=== PATIENT | male | born 1955 | race Caucasian/White ===

== ENCOUNTER 2016-11-21 13:38 | Inpatient (IN) | payer OTHER ==
[~2016-11-21] VITALS: Ht 188 cm; Wt 99.5 kg
[2016-11-21 14:31] LABS: URINE APPEARANCE CLEAR (CLEAR); URINE BILIRUBIN NEG (NEG); URINE COLOR DK YELLOW; URINE NITRITE NEG (NEG); URINE SPECIFIC GRAVITY 1.034 (1.000-1.030); UROBILINOGEN NEG (NEG)
[2016-11-21 14:32] LABS: MANUAL MICROSCOPIC REQUIRED? NO; REVIEW REQ? NO
[2016-11-21] MEDS ORDERED: DIVA500T59 PO ×2 (14:42)
[2016-11-21] MEDS ORDERED: HYDR-3126 PO (14:42)
[2016-11-21] MEDS ORDERED: ABL/5 PO ×2 (14:42→19:17)
[2016-11-21] MEDS ORDERED: ESCI10TA17 PO (14:42)
[2016-11-21 14:49] LABS: BASO % 0.5 %; BASO ABS # 0.04 K/uL (0-0.2); COMPLETE YES; EOS % 0.9 %; HEMATOCRIT 45.4 % (42-52); IG% 0.3 %; MEAN CELL VOLUME 84.9 fL (80-100); MEAN CORPUSCULAR HEMOGLOBIN 30.3 pg (25-34); MEAN CORPUSCULAR HGB CONC 35.7 g/dl (32-36); MONO % 10.5 %; NEUT % 55.8 %; PLATELET COUNT 189 K/uL (130-400); RED BLOOD COUNT 5.35 M/uL (4.7-6.1)
[2016-11-21 14:53] LABS: BENZODIAZEPINE, URINE NEG (NEG); COCAINE,URINE NEG (NEG); PHENCYCLIDINE, URINE NEG (NEG)
[2016-11-21 15:08] LABS: BUN/CREATININE RATIO 15.3 (10-20); CALCIUM 8.9 mg/dl (8.5-10.1); CREATININE 1.2 mg/dl (0.60-1.40); POTASSIUM 4.1 mmol/L (3.5-5.1)
[2016-11-21 15:18] LABS: THYROID STIMULATING HORMONE 0.724 uIu/ml (0.300-4.500)
[2016-11-21] MEDS ORDERED: hydrOXYzine HCL 25 MG TAB PO PRN (16:00)
[2016-11-21] MEDS ORDERED: ALUMINUM/MAGNESIUM SUSP 30 ML UDC PO PRN (16:00)
[2016-11-21] MEDS ORDERED: BISMUTH SUBSALICYLATE PER ML OMNICELL CHARGE PO PRN (16:00)
[2016-11-21] MEDS ORDERED: MAGNESIUM HYDROXIDE SUSP 30 ML UDC PO PRN (16:00)
[2016-11-21] MEDS ORDERED: SODIUM CHLORIDE 0.65% NA SOLN 45 ML (OCEAN) PRN (16:00)
[2016-11-21] MEDS ORDERED: ACETAMINOPHEN 325 MG TAB PO PRN (16:00)
[2016-11-21] MEDS ORDERED: LORAZEPAM 0.5 MG TAB SL STA (16:03)
[2016-11-21] MEDS ORDERED: NURSING VERBAL MED ORDER SCH (18:00)
[2016-11-21 18:33] VITALS: O2SAT 97
--- NOTE | 2016-11-21 18:37 | EMERGENCY ROOM VISIT NOTE ---
History Report prepared by Sai: Yani Ba Under the Supervision of: Yumiko WhiteO. First contact with patient: 13:53 Chief Complaint: MENTAL HEALTH EVALUATION Stated Complaint: DEPRESSION, LACK OF INTEREST IN ANYTHING History of Present Illness The patient is a 61 year old male who presents to the Emergency Room for a mental health evaluation. The patient states that he has been depressed in the past. For the past 3 weeks it has been much worse. Per , this is the most depressed that she has ever seen him. For the past week the patient has been in bed. He has not been eating, drinking, showering, or bathing for the past week. He reports a 9 lb weight loss over the past two weeks. The patient denies anything triggering his worsening depression. He denies SI or HI. He states that he has started feeling like he would "be better off not being here anymore. " The patient has a history of bipolar disorder. He has been admitted for this 4 times in the past. He has been taking his medications as prescribed. Two weeks ago he was changed from Wellbutrin to Lexapro. Pt denies headache, change in vision, fevers, chest pain, shortness of breath, nausea, vomiting, diarrhea, pain with urination, and melena. Source of History: patient, spouse/significant other Onset: 3 weeks ago Position: other (mental health) Quality: other (depression) Timing: worsening Associated Symptoms: No fevers, No headache, No chest pain, No SOB, No nausea, No vomiting, No melena, No diarrhea, No urinary symptoms Note: Pt denies SI and HI. Review of Systems See HPI for pertinent positives & negatives. A total of 10 systems reviewed and were otherwise negative. Past Medical & Surgical Medical Problems: (1) Major depressive disorder, recurrent episode with anxious distress Family History No pertinent history stated. Social History Smoking Status: Never Smoker Marital Status: Housing Status: lives with significant other Occupation Status: retired Current/Historical Medications Scheduled Aripiprazole (Abilify), 5 MG PO DAILY Divalproex Sodium (Depakote), 1,000 MG PO QPM Divalproex Sodium (Depakote), 500 MG PO QAM Escitalopram (Lexapro), 10 MG PO QAM Scheduled PRN Hydroxyzine Hcl (Atarax), 50 MG PO TID PRN for Anxiety Allergies Coded Allergies: No Known Allergies (Unverified , 11/21/16) Physical Exam Vital Signs Date Time Temp Pulse Resp B/P (MAP) Pulse Ox O2 Delivery O2 Flow Rate FiO2 11/21/16 18:33 68 18 139/92 97 11/21/16 16:34 144/95 11/21/16 16:02 69 18 151/104 97 Room Air 11/21/16 13:42 36.7 86 18 141/97 95 Room Air Physical Exam GENERAL: alert, sitting up in bed, disheveled, depressed, well appearing, well nourished, no distress, non-toxic EYE EXAM: normal conjunctiva OROPHARYNX: no exudate, no erythema, lips, buccal mucosa, and tongue normal and mucous membranes are moist NECK: supple, no nuchal rigidity, no adenopathy, non-tender LUNGS: Clear to auscultation. Normal chest wall mechanics HEART: no murmurs, S1 normal and S2 normal ABDOMEN: abdomen soft, non-tender, normo-active bowel sounds, no masses, no rebound or guarding. BACK: Back is symmetrical on inspection and there is no deformity, no midline tenderness, no CVA tenderness. SKIN: no rashes and no bruising UPPER EXTREMITIES: upper extremities are grossly normal. LOWER EXTREMITIES: No pitting edema. NEURO EXAM: Normal sensorium, cranial nerves II-XII grossly intact, normal speech, no gross weakness of arms, no gross weakness of legs. PSYCH: Denies SI and HI. He admits to having no reason to live anymore, not showering, bathing, eating, drinking, or leaving the bed x1 week. Flat affect. Medical Decision & Procedures Laboratory Results 11/21/16 14:30 Red Blood Count 5.35, Mean Corpuscular Volume 84.9, Mean Corpuscular Hemoglobin 30.3, Mean Corpuscular Hemoglobin Concent 35.7, Mean Platelet Volume 11.0, Neutrophils (%) (Auto) 55.8, Lymphocytes (%) (Auto) 32.0, Monocytes (%) (Auto) 10.5, Eosinophils (%) (Auto) 0.9, Basophils (%) (Auto) 0.5, Neutrophils # (Auto ) 4.18, Lymphocytes # (Auto) 2.40, Monocytes # (Auto) 0.79, Eosinophils # (Auto ) 0.07, Basophils # (Auto) 0.04 11/21/16 14:30 Test 11/21/16 14:10 11/21/16 14:30 11/21/16 16:03 Urine Color DK YELLOW Urine Appearance CLEAR (CLEAR) Urine pH 6.0 (4.5-7.5) Urine Specific [place] 1.034 (1.000-1.030) Urine Protein TRACE (NEG) Urine Glucose (UA) NEG (NEG) Urine Ketones 1+ (NEG) Urine Occult Blood NEG (NEG) Urine Nitrite NEG (NEG) Urine Bilirubin NEG (NEG) Urine Urobilinogen NEG (NEG) Urine Leukocyte Esterase NEG (NEG) Urine WBC (Auto) 1-5 /hpf (0-5) Urine RBC (Auto) 5-10 /hpf (0-4) Urine Hyaline Casts (Auto) 1-5 /lpf (0-5) Urine Epithelial Cells (Auto) 5-10 /lpf (0-5) Urine Bacteria (Auto) NEG (NEG) Urine Opiates Screen NEG (NEG) Urine Methadone, Qualitative NEG (NEG) Urine Barbiturates NEG (NEG) Urine Phencyclidine (PCP) Level NEG (NEG) Ur Amphetamine/Methamphetamine NEG (NEG) MDMA (Ecstasy) Screen POS (NEG) Urine Benzodiazepines Screen NEG (NEG) Urine Cocaine Metabolite NEG (NEG) Urine Marijuana (THC) NEG (NEG) White Blood Count 7.50 K/uL (4.8-10.8) Red Blood Count 5.35 M/uL (4.7-6.1) Hemoglobin 16.2 g/dL (14.0-18.0) Hematocrit 45.4 % (42-52) Mean Corpuscular Volume 84.9 fL (80-100) Mean Corpuscular Hemoglobin 30.3 pg (25-34) Mean Corpuscular Hemoglobin Concent 35.7 g/dl (32-36) Platelet Count 189 K/uL (130-400) Mean Platelet Volume 11.0 fL (7.4-10.4) Neutrophils (%) (Auto) 55.8 % Lymphocytes (%) (Auto) 32.0 % Monocytes (%) (Auto) 10.5 % Eosinophils (%) (Auto) 0.9 % Basophils (%) (Auto) 0.5 % Neutrophils # (Auto) 4.18 K/uL (1.4-6.5) Lymphocytes # (Auto) 2.40 K/uL (1.2-3.4) Monocytes # (Auto) 0.79 K/uL (0.11-0.59) Eosinophils # (Auto) 0.07 K/uL (0-0.5) Basophils # (Auto) 0.04 K/uL (0-0.2) RDW Standard Deviation 40.9 fL (36.4-46.3) RDW Coefficient of Variation 13.3 % (11.5-14.5) Immature Granulocyte % (Auto) 0.3 % Immature Granulocyte # (Auto) 0.02 K/uL (0.00-0.02) Nucleated RBC Absolute Count (auto) 0.07 K/uL (0-0) Nucleated Red Blood Cells % 0.9 % Anion Gap 7.0 mmol/L (3-11) Est Creatinine Clear Calc Drug Dose 83.7 ml/min Estimated GFR () 76.3 Estimated GFR (Non- 65.8 BUN/Creatinine Ratio 15.3 (10-20) Calcium Level 8.9 mg/dl (8.5-10.1) Total Bilirubin 0.7 mg/dl (0.2-1) Direct Bilirubin 0.2 mg/dl (0-0.2) Aspartate Amino Transf (AST/SGOT) 33 U/L (15-37) Alanine Aminotransferase (ALT/SGPT) 92 U/L (12-78) Alkaline Phosphatase 54 U/L (45-117) Total Protein 6.9 gm/dl (6.4-8.2) Albumin 3.4 gm/dl (3.4-5.0) Thyroid Stimulating Hormone (TSH) 0.724 uIu/ml (0.300-4.500) Ethyl Alcohol mg/dL < 3.0 mg/dl (0-3) Laboratory results per my review. Medications Administered Medications (Trade) Dose Ordered Sig/Aryan Route Start Time Stop Time Status Last Admin Dose Admin Lorazepam (Ativan Tab) 0.5 mg NOW STAT SL 11/21/16 16:03 11/21/16 16:04 DC 11/21/16 16:10 0.5 MG ED Course ED COURSE: Vital signs were reviewed and showed hypertensive. The patients medical record was reviewed The above diagnostic studies were performed and reviewed. ED treatments and interventions as stated above. 1353: The patient was evaluated in room A5. A complete history and physical examination was performed. 1532: The psychiatric liaison evaluated the patient and he has been accepted to [facility] for further management. 1541: Upon reevaluation, the patient is doing well. I discussed my findings with the patient and he understands and agrees with the treatment plan. Based on the patients age, coexisting illnesses, exam and lab findings the decision to treat as an inpatient was made. The patient remained stable while under my care. The patient will be evaluated for further management. Medical Decision Differential diagnosis: Etiologies such as mood disorder, infection, hypoglycemia, electrolyte abnormalities, cardiac sources, intracerebral event, toxicologic, neurologic, as well as others were entertained. Patient is a 61-year-old male who presents the ER for depression. He has not been eating and drinking or leaning benefit past week. He has not been showering or shaving. He has no physical complaints. CBC along with BMP, LFTs and TSH are unremarkable. UA is unremarkable. Tox is positive for MDMA. Patient was updated regards to his findings. He is evaluated by 3 S. and admitted for depression/mood disorder. Medication Reconcilliation Current Medication List: was personally reviewed by me Blood Pressure Screening Patient's blood pressure: Elevated blood pressure Blood pressure disposition: Did not require urgent referral Impression Primary Impression: Depression Additional Impression: Mood disorder Scribe Attestation The scribe's documentation has been prepared under my direction and personally reviewed by me in its entirety. I confirm that the note above accurately reflects all work, treatment, procedures, and medical decision making performed by me. Departure Information Dispostion Mental Health Acute Care Referrals Julian Sanchez M.D. (MEDICAL) (PCP) Patient Instructions My [facility] Problem Qualifiers Primary Impression: Depression Depression Type: unspecified Qualified Codes: F32.9 - Major depressive disorder, single episode, unspecified
[2016-11-21 18:54] VITALS: BP 158/102; PULSE 66; TEMP 36.7; Ht 188 cm; Wt 99.5 kg
[2016-11-21 20:49] VITALS: BP 161/105; PULSE 65
[2016-11-21] MEDS: DIVALPROEX SODIUM 500 MG DELAY RELEASE TAB PO SCH (21:07)
[2016-11-21] MEDS: hydrOXYzine HCL 25 MG TAB PO PRN (21:07)
[2016-11-21] MEDS ORDERED: NURSING VERBAL MED ORDER ONE (21:15)
[2016-11-21] MEDS: ARIPIprazole TAB 5 MG TAB PO SCH (21:33)
[2016-11-22] MEDS: hydrOXYzine HCL 25 MG TAB PO PRN (03:01)
[2016-11-22 07:03] VITALS: BP_SYST 157; BP_SYST 158; BP_DIAS 108; BP_DIAS 92; PULSE 59; PULSE 73; TEMP 36.3
[2016-11-22] MEDS ORDERED: DIVALPROEX SODIUM 500 MG DELAY RELEASE TAB PO SCH (09:00)
[2016-11-22] MEDS ORDERED: ARIPIprazole TAB 5 MG TAB PO SCH (09:00)
[2016-11-22] MEDS: ARIPIprazole TAB 5 MG TAB PO SCH ×2 (10:06→21:25)
[2016-11-22] MEDS: ESCITALOPRAM OXALATE 10 MG TAB PO SCH (10:07)
[2016-11-22] MEDS ORDERED: LISINOPRIL 10 MG TAB PO ONE (10:34)
[2016-11-22] MEDS ORDERED: LITHIUM CARBONATE 450 MG TABCR PO ONE (10:35)
--- NOTE | 2016-11-22 10:44 | Psychiatric History & Physical ---
History Date of Service Nov 22, 2016. Identifying Data Tal Rivas is a 61-year-old male who currently lives in [place], [place] with his and oldest son who are both on disability. Tal Rivas was admitted on a 201 voluntary commitment. Patient is admitted from home. He has a history of prior psychiatric hospitalizations but is new to this area. Information provided by the patient is considered to be reliable. Chief Complaint "I've been really depressed for the past 3 weeks". History of Present Illness This is a cooperative 61-year-old gentleman who reports a history of bipolar diagnosis which was diagnosed in his early 50s. He perceives that, in the past , he has shown softer signs of hypomania but this was becoming more of a problem " where was getting almost out of control" and he was started on Depakote in 2010 which has helped to reduce significantly his experience of buzz. He describes his buzz as being excessively talkative, thought racing, mild grandiosity, mild delusional thinking, spending sprees and order thousand dollars, excessive energy that could last for weeks to months. He denies that he ever became overtly psychotic or had hallucinations with his buzz. Since he has been on the Depakote he describes his mood as more "flat." He believes that the last year has been largely mildly depressive with more acute low mood in the past 3 weeks without clear trigger. He describes sleeping excessively, perhaps 16 hours a day, very low energy, low interest, increasing guilt about his inability to do things, declined appetite, 9 pound weight loss in last 2 weeks, and some thoughts of life not being worth living however he denies that he is considered hurting himself because his family is protective. He denies a history of self-harm. He has been on benzodiazepines in the past and does perceive that at times he feels anxious however he does not identify with a baseline of excessive anxiety and worry. Denies history of discrete panic attacks. Since moving to this area last year he had been seeing Dr. Rendon and most recently seeing Dr. Uribe. He had been taking Wellbutrin at a low-dose but felt that it was not effective and this was discontinued and Lexapro started instead about [address] Uribe. So far he reports no benefit but tolerating okay. Has been on Abilify same dose for years. Since admission to the unit his blood pressure has been trending a little high. He denies a history of hypertension. Past Psychiatric History Current OP Treatment: psychiatrist (Dr Uribe) Prior OP Treatment: psychiatrist Prior Psych Hospitalizations: other ([facility], [facility] , [facility] - 4 total hospitalizations) Access to a Gun: No Suicide Attempts: No Past Medication Trials Unable to recall effect on Seroquel. Previously treated with Valium and Wellbutrin Past Medical/Surgical History History of Concussion/Seizure: No Denies history of significant head injury or loss of consciousness, no seizure history, denies history of hypertension, dyslipidemia, heart disease, liver disease, kidney disease, thyroid disease, diabetes. Does have a history of some IBS-like symptoms but never diagnosed or treated. Allergies Allergies: Coded Allergies: No Known Allergies (Unverified , 11/21/16) Home Medications Scheduled Aripiprazole (Abilify), 1 TAB PO BID Divalproex Sodium (Depakote), 1,000 MG PO QPM Divalproex Sodium (Depakote), 500 MG PO QAM Escitalopram (Lexapro), 10 MG PO QAM Scheduled PRN Hydroxyzine Hcl (Atarax), 50 MG PO TID PRN for Anxiety Family History Asthma FH: alcoholism FATHER FH: schizophrenia FATHER, Onset:30's - 40 History of Suicide: No History of Substance Abuse: Yes Psychiatric History: Yes Oldest son has schizoaffective disorder. He denies a family history of diabetes , dyslipidemia, hypertension. There is heart disease diffusely on father's side Alcohol Use Alcohol Use In Past 12 Months: Yes (1 beer/week) AUDIT Total Score: 0 Smoking Use Smoking Status: Never Smoker Substance History Experimenting with recreational drugs including marijuana, mushrooms, LSD in college. Denies any recreational drug use in 12 months. Personal History Lives in: [place], [place] Childhood: Describes childhood as warm and middle-class household however father developed schizophrenia in his 30s and was then in and out of the mental hospitals. Parents eventually when he was in high school. He didn't like school but grades were good and graduated fourth in his high school class. Denies behavioral problems there. 2 siblings, patient was oldest. Eventually achieved PhD in history. 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 On disability since 2015 for bipolar disorder Relationship History: Children: 2 Spiritual Affiliation: none Legal History: reported (history of DUI in 2010) Psychological Trauma History: Denies Hx Traumatic Event Review of Systems 10 point review of systems otherwise negative except as per history of present illness Constitutional: other (low energy and excessive sleep, weight loss, low appetite) Cardiovascular: reports: no symptoms reported Respiratory: reports: no symptoms reported Gastrointestinal: denies abdominal pain, denies constipation, denies diarrhea, denies nausea, other (shifting abdominal cramping) Genitourinary - Male: reports: no symptoms Musculoskeletal: no symptoms reported Integumentary: no symptoms reported Neurologic: reports: other (difficulty with concentration) Endocrine: no symptoms Hematologic / Lymphatic: no symptoms Examination Physical Examination A physical exam was performed in the ER prior to admission to the unit by Dr Hollis. I accept that physical as correct/medical clearance for the inpatient physical exam. I did perform a brief abdominal exam today and observed normoactive bowel sounds, no guarding or rigidity and only very mild tenderness to palpation diffusely. Vital Signs Vital Signs Past 12 Hours Date Time Temp Pulse Resp B/P (MAP) Pulse Ox O2 Delivery O2 Flow Rate FiO2 11/22/16 07:03 36.3 59 18 157/92 73 158/108 Laboratory Results Last 24 Hours Test 11/21/16 14:10 11/21/16 14:30 11/22/16 07:02 11/22/16 07:05 Urine Color DK YELLOW Urine Appearance CLEAR Urine pH 6.0 Urine Specific [place] 1.034 Urine Protein TRACE Urine Glucose (UA) NEG Urine Ketones 1+ Urine Occult Blood NEG Urine Nitrite NEG Urine Bilirubin NEG Urine Urobilinogen NEG Urine Leukocyte Esterase NEG Urine WBC (Auto) 1-5 /hpf Urine RBC (Auto) 5-10 /hpf Urine Hyaline Casts (Auto) 1-5 /lpf Urine Epithelial Cells (Auto) 5-10 /lpf Urine Bacteria (Auto) NEG Urine Opiates Screen NEG Urine Methadone, Qualitative NEG Urine Barbiturates NEG Urine Phencyclidine (PCP) Level NEG Ur Amphetamine/Methamphetamine NEG MDMA (Ecstasy) Screen POS Urine Benzodiazepines Screen NEG Urine Cocaine Metabolite NEG Urine Marijuana (THC) NEG White Blood Count 7.50 K/uL Red Blood Count 5.35 M/uL Hemoglobin 16.2 g/dL Hematocrit 45.4 % Mean Corpuscular Volume 84.9 fL Mean Corpuscular Hemoglobin 30.3 pg Mean Corpuscular Hemoglobin Concent 35.7 g/dl Platelet Count 189 K/uL Mean Platelet Volume 11.0 fL Neutrophils (%) (Auto) 55.8 % Lymphocytes (%) (Auto) 32.0 % Monocytes (%) (Auto) 10.5 % Eosinophils (%) (Auto) 0.9 % Basophils (%) (Auto) 0.5 % Neutrophils # (Auto) 4.18 K/uL Lymphocytes # (Auto) 2.40 K/uL Monocytes # (Auto) 0.79 K/uL Eosinophils # (Auto) 0.07 K/uL Basophils # (Auto) 0.04 K/uL RDW Standard Deviation 40.9 fL RDW Coefficient of Variation 13.3 % Immature Granulocyte % (Auto) 0.3 % Immature Granulocyte # (Auto) 0.02 K/uL Nucleated RBC Absolute Count (auto) 0.07 K/uL Nucleated Red Blood Cells % 0.9 % Sodium Level 145 mmol/L Potassium Level 4.1 mmol/L Chloride Level 112 mmol/L Carbon Dioxide Level 26 mmol/L Anion Gap 7.0 mmol/L Blood Urea Nitrogen 18 mg/dl Creatinine 1.20 mg/dl Est Creatinine Clear Calc Drug Dose 83.7 ml/min Estimated GFR () 76.3 Estimated GFR (Non- 65.8 BUN/Creatinine Ratio 15.3 Random Glucose 104 mg/dl 110 mg/dl Calcium Level 8.9 mg/dl Total Bilirubin 0.7 mg/dl Direct Bilirubin 0.2 mg/dl Aspartate Amino Transf (AST/SGOT) 33 U/L Alanine Aminotransferase (ALT/SGPT) 92 U/L Alkaline Phosphatase 54 U/L Total Protein 6.9 gm/dl Albumin 3.4 gm/dl Thyroid Stimulating Hormone (TSH) 0.724 uIu/ml Ethyl Alcohol mg/dL < 3.0 mg/dl Triglycerides Level 111 mg/dl Cholesterol Level 192 mg/dl HDL Cholesterol 32 mg/dl LDL Cholesterol, Calculated 138 mg/dl VLDL Cholesterol, Calculated 22 mg/dl Cholesterol/HDL Ratio 6.0 Valproic Acid (Depakene) Level 75 mcg/ml Mental Examination During interview pt is: alert and oriented, cooperative Appearance: appropriately dressed Eye contact is: good Motor behavior is: steady gait & station, no abnormal motor movements Speech: normal in rate, rhythm & volume Affect: blunted Mood is: depressed Thought process: goal directed, linear, logical Thought content: hopelessness, worthlessness Suicidal thought are: denied, Plan: denied, Intent: denied Homicidal thoughts are: denied Hallucinations: denies auditory, denies visual Cognition: memory grossly intact, other (attention mildly impaired) Intelligence estimated to be: above average Insight: fair Judgement: fair Impression / Recommendations Impression This is a 61-year-old gentleman with a family history of schizophrenia and schizoaffective disorder who appears to have developed more debilitating symptoms of a bipolar diathesis in his 50s. Depakote has been helpful in reducing symptoms of buzz however mood baseline has been mildly dysthymic and more acutely depressed in past 3 weeks to the point that he has been essentially bedridden, not attending to ADLs, and was felt to be feeling outpatient care and subsequently admitted to the psychiatric service here. He had recently been discontinued from Wellbutrin and started on Lexapro by his outpatient provider without benefit. Dx: BPAD I, MRE Depressed Hypertension Inventory Assets Strengths: help seeking. compliant with meds. has stable residence and outpatient providers Needs: medication management and activation Risk Factors Assessment Male: Yes : Yes /single/: No Access to guns: No Health problems: No Mental Health Diagnoses: Yes Substance use disorders: No Previous attempt: No Family history of suicide: No Previous psychiatric stay: Yes Hopelessness: Yes Smoker: No Protective Factors Assessment Buddhism beliefs: No : Yes Employed: No Stable relationships: Yes Supportive family: Yes Recommendations (1) Hypertension 11/22 - denies h/o HTN - start lisinopril 10mg po qam. reviewed common risks/benefits. can then f/u w/ PCP as outpatient. - consider interaction of antihypertensives re Li excretion (2) Bipolar 1 disorder, depressed, severe 11/22 - pt admitted to locked unit w/ safety checks. - will be encourage to participating in unit programming as appropriate - encourage attn to ADL's - reduce depakote to 100mg qhs - level in 70's o admission. makes him feel flat but effective for buzz - start lithium carb 450mg po bid. if effective for mood stabilization, may consider as monotherapy i. future - common risks associated with lithium discussed including thyroid dysfunction, weight gain, kidney disease, need for monitoring levels - will continue lexapro 10mg daily for now (started approx 2 weeks ago.) reviewed risks re mood cycling and buzz longer term - will give a little simethicone prn for nonacute abdominal cramping and monitor - care will be coordinated with outpatient providers CPT Code Initial Hospital Care: [id number]
[2016-11-22] MEDS ORDERED: SIMETHICONE 80 MG CHEW PO PRN (10:45)
[2016-11-22] MEDS: LITHIUM CARBONATE 450 MG TABCR PO SCH (21:25)
[2016-11-22] MEDS: DIVALPROEX SODIUM 500 MG DELAY RELEASE TAB PO SCH (21:25)
[2016-11-23 06:43] VITALS: BP_SYST 127; BP_SYST 135; BP_DIAS 82; BP_DIAS 83; PULSE 56; PULSE 65; TEMP 36.4
[2016-11-23] MEDS: ARIPIprazole TAB 5 MG TAB PO SCH ×2 (09:11→21:19)
[2016-11-23] MEDS: ESCITALOPRAM OXALATE 10 MG TAB PO SCH (09:11)
[2016-11-23] MEDS: LITHIUM CARBONATE 450 MG TABCR PO SCH ×2 (09:11→21:20)
[2016-11-23] MEDS: LISINOPRIL 10 MG TAB PO SCH (09:12)
--- NOTE | 2016-11-23 10:50 | Psychiatric Progress Notes ---
Progress Note Date of Service Nov 23, 2016. Chief Complaint "I feel a little better". Subjective Patient was seen & assessed interval progress reviewed with Treatment Team. No acute events overnight per staff. Blood pressure improved already on lisinopril. On interview he describes feeling a little better today regarding mood, feeling a little more hopeful. He believes he is tolerating first dose of lithium well without side effects. Has been attending groups. Denies suicidal ideation this morning. Review of Systems Constitutional: + fatigue Abdomen: No nausea Sleep Information Total Hours of Sleep: 7.00 Meal Information Percent of Breakfast Consumed: 100 Percent of Lunch Consumed: 90 Percent of Dinner Consumed: 90 Mental Status Exam During interview pt is: alert and oriented, cooperative Appearance: disheveled Eye contact is: good Motor behavior is: steady gait & station, no abnormal motor movements Speech: normal in rate, rhythm & volume Affect: blunted Mood is: other ("a little better") Thought process: goal directed, linear, logical Thought content: hopelessness, worthlessness Suicidal thought are: denied, Plan: denied, Intent: denied Homicidal thoughts are: denied Hallucinations: denies auditory, denies visual Cognition: memory grossly intact, other (attention mildly impaired) Intelligence estimated to be: above average Insight: fair Judgement: fair Impression This is a 61-year-old gentleman with a family history of schizophrenia and schizoaffective disorder who appears to have developed more debilitating symptoms of a bipolar diathesis in his 50s. Depakote has been helpful in reducing symptoms of buzz however mood baseline has been mildly dysthymic and more acutely depressed in past 3 weeks to the point that he has been essentially bedridden, not attending to ADLs, and was felt to be feeling outpatient care and subsequently admitted to the psychiatric service here. He had recently been discontinued from Wellbutrin and started on Lexapro by his outpatient provider without benefit. Dx: BPAD I, MRE Depressed Hypertension Plan (1) Hypertension 11/22 - denies h/o HTN - start lisinopril 10mg po qam. reviewed common risks/benefits. can then f/u w/ PCP as outpatient. - consider interaction of antihypertensives re Li excretion 11/23 - Blood pressure improved today (2) Bipolar 1 disorder, depressed, severe 11/22 - pt admitted to locked unit w/ safety checks. - will be encourage to participating in unit programming as appropriate - encourage attn to ADL's - reduce depakote to 100mg qhs - level in 70's o admission. makes him feel flat but effective for buzz - start lithium carb 450mg po bid. if effective for mood stabilization, may consider as monotherapy in future - common risks associated with lithium discussed including thyroid dysfunction, weight gain, kidney disease, need for monitoring levels - will continue lexapro 10mg daily for now (started approx 2 weeks ago.) reviewed risks re mood cycling and buzz longer term - will give a little simethicone prn for nonacute abdominal cramping and monitor - care will be coordinated with outpatient providers 11/23 - Tolerated first dose of lithium. Conservative dosing to start as DRAGAN inhibitor was started concomitantly Discharge / Aftercare Planning Primary Care Physician: Name: DR Julian Sanchez Therapist: Name: Dave Orosco Date of Appointment: Nov 27, 2016 Manager Telemetry: Name: None Visit Code E&M Code: 32887 Inventory Assets Strengths: help seeking. compliant with meds. has stable residence and outpatient providers Needs: medication management and activation Risk Factors Assessment Male: Yes : Yes /single/: No Health problems: No Mental Health Diagnoses: Yes Substance use disorders: No Previous attempt: No Family history of suicide: No Previous psychiatric stay: Yes Hopelessness: Yes Smoker: No Protective Factors Assessment Anglican beliefs: No : Yes Employed: No Stable relationships: Yes Supportive family: Yes Data Vital Signs Last 24 Hrs: Date Time Temp Pulse Resp B/P (MAP) Pulse Ox O2 Delivery O2 Flow Rate FiO2 11/23/16 06:43 36.4 56 16 135/83 65 127/82 Meds Administered Last 24 Hrs: Meds Administered (Past 24Hrs) Medications (Trade) Dose Ordered Sig/Aryan Route Start Time Stop Time Status Last Admin Dose Admin Acetaminophen (Tylenol Tab) 650 mg Q4H PRN PO 11/21/16 16:00 12/21/16 15:59 11/22/16 00:24 650 MG Al Hydroxide/Mg Hydroxide (Maalox Susp) 30 ml Q4H PRN PO 11/21/16 16:00 12/21/16 15:59 11/22/16 00:25 30 ML Hydroxyzine HCl (Vistaril Tab) 50 mg HSZ PRN PO 11/21/16 16:00 12/21/16 15:59 11/22/16 03:01 50 MG Escitalopram Oxalate (Lexapro Tab) 10 mg QAM PO 11/22/16 09:00 12/22/16 08:59 11/23/16 09:11 10 MG Lorazepam (Ativan Tab) 0.5 mg NOW STAT SL 11/21/16 16:03 11/21/16 16:04 DC 11/21/16 16:10 0.5 MG Divalproex Sodium (Depakote Delay Rel Tab) 500 mg QAM PO 11/22/16 09:00 11/22/16 11:09 DC 11/22/16 10:10 500 MG Divalproex Sodium (Depakote Delay Rel Tab) 1,000 mg HS PO 11/21/16 21:00 12/21/16 20:59 11/22/16 21:25 1,000 MG Aripiprazole (Abilify Tab) 5 mg BID PO 11/21/16 22:00 12/21/16 21:59 11/23/16 09:11 5 MG Lisinopril (Zestril Tab) 10 mg QAM PO 11/23/16 09:00 12/23/16 08:59 11/23/16 09:12 10 MG Lisinopril (Zestril Tab) 10 mg 1034 ONCE PO 11/22/16 10:34 11/22/16 10:40 DC 11/22/16 11:23 10 MG [place] Carbonate (Eskalith Cr Tab) 450 mg BID PO 11/22/16 22:00 12/22/16 21:59 11/23/16 09:11 450 MG [place] Carbonate (Eskalith Cr Tab) 450 mg 1035 ONCE PO 11/22/16 10:35 11/22/16 10:41 DC 11/22/16 11:24 450 MG
[2016-11-23] MEDS: DIVALPROEX SODIUM 500 MG DELAY RELEASE TAB PO SCH (21:20)
[2016-11-24 06:59] VITALS: BP_SYST 138; BP_SYST 147; BP_DIAS 85; BP_DIAS 90; PULSE 56; PULSE 63; TEMP 36.4
[2016-11-24] MEDS: ESCITALOPRAM OXALATE 10 MG TAB PO SCH (09:05)
[2016-11-24] MEDS: ARIPIprazole TAB 5 MG TAB PO SCH ×2 (09:05→21:09)
[2016-11-24] MEDS: LISINOPRIL 10 MG TAB PO SCH (09:05)
[2016-11-24] MEDS: LITHIUM CARBONATE 450 MG TABCR PO SCH ×2 (09:05→21:09)
--- NOTE | 2016-11-24 11:58 | Psychiatric Progress Notes ---
Progress Note Date of Service Nov 24, 2016. Chief Complaint "Pretty well". Subjective Patient was seen & assessed interval progress reviewed with Treatment Team. Staff report he is calm and cooperative, going to groups and participating appropriately. He states that his mood has improved here, and he is doing a better job with respect to his ADLs, but he is very concerned that he will rapidly decompensate when he returns home. He rates his mood as 7 out of 10. He thinks his improvement here is due to "artificial environment," stating that staff are helping him to get out of bed and stick to a daily schedule. He worries that if he were to return home at this time, he would revert to "being too anxious, depressed, and scared to get out of bed or eat," and would not be able to function or to care for his and son. He states that due to their medical issues, he does all of the housework and provides for all of their needs. He states that he felt "suicide was the only other option" prior to admission, because he wasn't able to function. He is working on ways that he could successfully make the transition to returning home, and thinks that having a schedule would be helpful, as well as exercising, and engaging in his hobby (building plastic models). 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 He is working on his safety plan. He wonders how he could deal with his friends that "don't believe in mental illness," and thinks he would like to talk about this topic in group. Sleep Information Total Hours of Sleep: 7.75 Meal Information Percent of Breakfast Consumed: 100 Percent of Lunch Consumed: 75 Percent of Dinner Consumed: 100 Mental Status Exam During interview pt is: alert and oriented, cooperative Appearance: disheveled, other (wearing scrub pants and a polo shirt) Eye contact is: good Motor behavior is: steady gait & station, no abnormal motor movements Speech: normal in rate, rhythm & volume Affect: blunted Mood is: other ("pretty good") Thought process: goal directed, linear, logical Thought content: hopelessness, worthlessness Suicidal thought are: denied Homicidal thoughts are: denied Hallucinations: denies auditory, denies visual Cognition: memory grossly intact, language grossly intact Intelligence estimated to be: above average Insight: fair Judgement: fair Impression This is a 61-year-old gentleman with a family history of schizophrenia and schizoaffective disorder who appears to have developed more debilitating symptoms of a bipolar diathesis in his 50s. Depakote has been helpful in reducing symptoms of buzz however mood baseline has been mildly dysthymic and more acutely depressed in past 3 weeks to the point that he has been essentially bedridden, not attending to ADLs, and was felt to be feeling outpatient care and subsequently admitted to the psychiatric service here. He had recently been discontinued from Wellbutrin and started on Lexapro by his outpatient provider without benefit. He was started on lithium on admission, Depakote was decreased, and escitalopram continued. Dx: BPAD I, MRE Depressed Hypertension Plan (1) Bipolar 1 disorder, depressed, severe 11/22 - pt admitted to locked unit w/ safety checks. - will be encourage to participating in unit programming as appropriate - encourage attn to ADL's - reduce depakote to 100mg qhs - level in 70's o admission. makes him feel flat but effective for buzz - start lithium carb 450mg po bid. if effective for mood stabilization, may consider as monotherapy in future - common risks associated with lithium discussed including thyroid dysfunction, weight gain, kidney disease, need for monitoring levels - will continue lexapro 10mg daily for now (started approx 2 weeks ago.) reviewed risks re mood cycling and buzz longer term - will give a little simethicone prn for nonacute abdominal cramping and monitor - care will be coordinated with outpatient providers 11/23 - Tolerated first dose of lithium. Conservative dosing to start as DRAGAN inhibitor was started concomitantly 11/24 - [place] level due 11/28/2016. Tolerating well. - Family meeting with and son today. (2) Hypertension 11/22 - denies h/o HTN - start lisinopril 10mg po qam. reviewed common risks/benefits. can then f/u w/ PCP as outpatient. - consider interaction of antihypertensives re Li excretion 11/23 - Blood pressure improved today Discharge / Aftercare Planning Primary Care Physician: Name: Dr Sanchez Date of Appointment: Dec 15, 2016 Time of Appointment: 3:05pm Psychiatrist: Name: Dr Goodman Date of Appointment: Dec 01, 2016 Time of Appointment: 10;45am Therapist: Name: Dave Orosco Date of Appointment: Nov 27, 2016 Time of Appointment: 2:00pm Mining Detail Draftsperson: Name: None Visit Code E&M Code: 83041 Inventory Assets Strengths: help seeking. compliant with meds. has stable residence and outpatient providers Needs: medication management and activation Risk Factors Assessment Male: Yes : Yes /single/: No Access to guns: No Health problems: Yes Mental Health Diagnoses: Yes Substance use disorders: No Previous attempt: No Family history of suicide: No Previous psychiatric stay: Yes Hopelessness: Yes Smoker: No Protective Factors Assessment Cheondoism beliefs: No : Yes Responsible for young children: No Employed: No Stable relationships: Yes Supportive family: Yes Data Vital Signs Last 24 Hrs: Date Time Temp Pulse Resp B/P (MAP) Pulse Ox O2 Delivery O2 Flow Rate FiO2 11/24/16 06:59 36.4 56 16 138/85 63 147/90 Meds Administered Last 24 Hrs: Meds Administered (Past 24Hrs) Medications (Trade) Dose Ordered Sig/Aryan Route Start Time Stop Time Status Last Admin Dose Admin Lisinopril (Zestril Tab) 10 mg QAM PO 11/23/16 09:00 12/23/16 08:59 11/24/16 09:05 10 MG [place] Carbonate (Eskalith Cr Tab) 450 mg BID PO 11/22/16 22:00 12/22/16 21:59 11/24/16 09:05 450 MG
[2016-11-24] MEDS: DIVALPROEX SODIUM 500 MG DELAY RELEASE TAB PO SCH (21:09)
[2016-11-25 07:03] VITALS: BP_SYST 126; BP_SYST 127; BP_DIAS 76; BP_DIAS 83; PULSE 55; PULSE 64; TEMP 36.3
[2016-11-25] MEDS: LISINOPRIL 10 MG TAB PO SCH (08:34)
[2016-11-25] MEDS: LITHIUM CARBONATE 450 MG TABCR PO SCH ×2 (08:34→21:13)
[2016-11-25] MEDS: ARIPIprazole TAB 5 MG TAB PO SCH ×2 (08:34→21:13)
[2016-11-25] MEDS: ESCITALOPRAM OXALATE 10 MG TAB PO SCH (08:34)
--- NOTE | 2016-11-25 12:36 | Psychiatric Progress Notes ---
Progress Note Date of Service Nov 25, 2016. Chief Complaint "Feeling more anxious". Subjective Patient was seen & assessed interval progress reviewed with Treatment Team. Staff report he is attending all groups and participating. Met with staff one- on-one talk about the stressors taking care of his and son who are both disabled. He had a family meeting with his and son yesterday, and his expressed concerns that he would be discharged to soon and reverts to his state prior to hospitalization, when he was staying in bed all day and unable to function. She stated that his manic episodes have caused significant financial problems for the family in the past, they lost their home and had to file for bankruptcy. She believes she was overspending prior to his most recent depressed episode, spending about $30,000 on his hobby of model airplanes in the past 6 months. They spent a lot of time talking about their finances and plans to ensure they remain on a budget. She also stated that he had been on lithium in the past and had side effects of slurred speech and tremulousness. They made some plans of how to complete household tasks with contributions from each member, and appeared to have good communication and a desire to work together. Patient discussed the possibility of volunteering. Today, the patient states that he woke up feeling more anxious, and had an urge to stay in bed and avoid things. He was able to get up and has attended all groups, and the anxiety is improving as the day progresses. He did take hydroxyzine 25 mg, and did not feel it was helpful, wondering if he could get something "stronger." He thinks his anxiety is triggered by "fear of relapse on the outside." He also experienced upset stomach, diarrhea, and noticed he was clenching his fingers. He says his thoughts consist of "apprehension about relapsing." He notes he had not talked about these fears all morning until now , it is willing to try to continue to process them with staff and peers. Sleep Information Total Hours of Sleep: 6.50 Meal Information Percent of Breakfast Consumed: 100 Percent of Lunch Consumed: 100 Percent of Dinner Consumed: 100 Mental Status Exam During interview pt is: alert and oriented, cooperative Appearance: appropriately dressed (wearing the same clothes as yesterday, scrub pants and a polo shirt), appropriately groomed Eye contact is: good Motor behavior is: steady gait & station, no abnormal motor movements Speech: normal in rate, rhythm & volume Affect: anxious, other (reactive and appropriate) Mood is: other ("really anxious") Thought process: goal directed, linear, logical Thought content: hopelessness, worthlessness, other (fears of relapsing after discharge) Suicidal thought are: denied Homicidal thoughts are: denied Hallucinations: denies auditory, denies visual Cognition: memory grossly intact, language grossly intact Intelligence estimated to be: above average Insight: fair Judgement: fair Impression This is a 61-year-old gentleman with a family history of schizophrenia and schizoaffective disorder who appears to have developed debilitating bipolar disorder in his 50s. Depakote has been helpful in reducing symptoms of buzz, however mood baseline has been mildly dysthymic and more acutely depressed in past 3 weeks to the point that he has been essentially bedridden, not attending to ADLs, and failing outpatient care, so was subsequently admitted to the psychiatric service here. He had recently been discontinued from Wellbutrin and started on Lexapro by his outpatient provider without benefit. He was started on lithium on admission, Depakote was decreased, and escitalopram continued. Dx: BPAD I, MRE Depressed Hypertension Plan (1) Bipolar 1 disorder, depressed, severe 11/22 - pt admitted to locked unit w/ safety checks. - will be encourage to participating in unit programming as appropriate - encourage attn to ADL's - reduce depakote to 100mg qhs - level in 70's o admission. makes him feel flat but effective for buzz - start lithium carb 450mg po bid. if effective for mood stabilization, may consider as monotherapy in future - common risks associated with lithium discussed including thyroid dysfunction, weight gain, kidney disease, need for monitoring levels - will continue lexapro 10mg daily for now (started approx 2 weeks ago.) reviewed risks re mood cycling and buzz longer term - will give a little simethicone prn for nonacute abdominal cramping and monitor - care will be coordinated with outpatient providers 11/23 - Tolerated first dose of lithium. Conservative dosing to start as DRAGAN inhibitor was started concomitantly 11/24 - [place] level due 11/28/2016. Tolerating well. - Family meeting with and son today. 11/25 - Increase hydroxyzine to 50 mg as needed for anxiety, as patient reports little benefit with 25 mg. Encouraged him to process his anxiety, as he feels is being driven by his fears of discharge, and warned of risk of sedation with higher dose. (2) Hypertension 11/22 - denies h/o HTN - start lisinopril 10mg po qam. reviewed common risks/benefits. can then f/u w/ PCP as outpatient. - consider interaction of antihypertensives re Li excretion 11/23 - Blood pressure improved today Discharge / Aftercare Planning Primary Care Physician: Name: Dr Sanchez Date of Appointment: Dec 15, 2016 Time of Appointment: 3:05pm Psychiatrist: Name: Dr Goodman Date of Appointment: Dec 01, 2016 Time of Appointment: 10;45am Therapist: Name: Dave Orosco Date of Appointment: Nov 27, 2016 Time of Appointment: 2:00pm Metalizing Machine Operator: Name: None Visit Code E&M Code: 05818 Inventory Assets Strengths: help seeking. compliant with meds. has stable residence and outpatient providers Needs: medication management and activation Risk Factors Assessment Male: Yes : Yes /single/: No Access to guns: No Health problems: Yes Mental Health Diagnoses: Yes Substance use disorders: No Previous attempt: No Family history of suicide: No Previous psychiatric stay: Yes Hopelessness: Yes Smoker: No Protective Factors Assessment Anabaptist beliefs: No : Yes Responsible for young children: No Employed: No Stable relationships: Yes Supportive family: Yes Data Vital Signs Last 24 Hrs: Date Time Temp Pulse Resp B/P (MAP) Pulse Ox O2 Delivery O2 Flow Rate FiO2 11/25/16 07:03 36.3 55 16 127/83 64 126/76
[2016-11-25] MEDS ORDERED: hydrOXYzine HCL 25 MG TAB PO PRN (12:45)
[2016-11-25] MEDS: DIVALPROEX SODIUM 500 MG DELAY RELEASE TAB PO SCH (21:13)
[2016-11-26 07:09] VITALS: BP_SYST 121; BP_DIAS 77; BP_DIAS 78; PULSE 64; PULSE 66; TEMP 36.5
[2016-11-26] MEDS: LISINOPRIL 10 MG TAB PO SCH (08:53)
[2016-11-26] MEDS: ARIPIprazole TAB 5 MG TAB PO SCH ×2 (08:53→21:21)
[2016-11-26] MEDS: ESCITALOPRAM OXALATE 10 MG TAB PO SCH (08:53)
[2016-11-26] MEDS: LITHIUM CARBONATE 450 MG TABCR PO SCH ×2 (08:53→21:24)
--- NOTE | 2016-11-26 09:03 | Psychiatric Progress Notes ---
Progress Note Date of Service Nov 26, 2016. Chief Complaint "Better today". Subjective Patient was seen & assessed interval progress reviewed with Treatment Team. Staff report he had a fine hand tremor, which nursing noted, but he had not noticed. He is attending all groups and participating. He had a difficult day yesterday, mood and anxiety were worse, and he was perseverating on his fears that he would decompensate at discharge. He had a dose of hydroxyzine 25mg with little response, so it was increased to 50mg, and was more helpful. He states that his mood and anxiety are both improved today, rating his mood as 7 out of 10. He thinks that helped to stick to his routine yesterday, and is planning to work on his schedule for when he goes home today. He was encouraged to write this out, and wants to incorporate his to do list as well. He denies suicidal thoughts. He does report mild tremor in his hands, which he had not noticed until nursing staff pointed it out. He denies that it interferes with his daily activities. He is hopeful that he will be ready to be discharged tomorrow in time to attend his therapy appointment at 2 PM. Spoke with patient's at her request, as she had concerns about how he was doing yesterday and his history of side effects on lithium. Updated her on his progress, that he is doing better today, and that he is hopeful for discharge tomorrow, but that he will be reassessed prior to that. Also updated her on his response to lithium thus far, that a trough level is ordered for tomorrow, and that it is being used as an augmenting agent, and therefore may be effective at a lower dose, which would decrease risk of side effects. Also reviewed his plan to work on a schedule for when he goes home, and his hope that he will be well enough to be discharged tomorrow. She said she is comfortable with this plan. Sleep Information Total Hours of Sleep: 8.00 Meal Information Percent of Breakfast Consumed: 100 Percent of Lunch Consumed: 100 Percent of Dinner Consumed: 100 Mental Status Exam During interview pt is: alert and oriented, cooperative Appearance: appropriately dressed (wearing scrub pants and a different colored polo shirt today), appropriately groomed Eye contact is: good Motor behavior is: steady gait & station, no abnormal motor movements Speech: normal in rate, rhythm & volume Affect: other (bigher today, reactive and appropriate) Mood is: other ("better") Thought process: goal directed, linear, logical Thought content: reality based without delusions, other Suicidal thought are: denied Homicidal thoughts are: denied Hallucinations: denies auditory, denies visual Cognition: memory grossly intact, language grossly intact Intelligence estimated to be: above average Insight: fair Judgement: fair Impression This is a 61-year-old gentleman with a family history of schizophrenia and schizoaffective disorder who appears to have developed debilitating bipolar disorder in his 50s. Depakote has been helpful in reducing symptoms of buzz, however mood baseline has been mildly dysthymic and more acutely depressed in past 3 weeks to the point that he has been essentially bedridden, not attending to ADLs, and failing outpatient care, so was subsequently admitted to the psychiatric service here. He had recently been discontinued from Wellbutrin and started on Lexapro by his outpatient provider without benefit. He was started on lithium on admission, Depakote was decreased, and escitalopram and aripiprazole continued at home doses. Plan (1) Bipolar 1 disorder, depressed, severe 11/22 - pt admitted to locked unit w/ safety checks. - will be encourage to participating in unit programming as appropriate - encourage attn to ADL's - reduce depakote from 1500mg total daily to 1000mg qhs - level in 70's o admission. makes him feel flat but effective for buzz - start lithium carb 450mg po bid. if effective for mood stabilization, may consider as monotherapy in future - common risks associated with lithium discussed including thyroid dysfunction, weight gain, kidney disease, need for monitoring levels - will continue lexapro 10mg daily for now (started approx 2 weeks ago.) reviewed risks re mood cycling and buzz longer term - will give a little simethicone prn for nonacute abdominal cramping and monitor - care will be coordinated with outpatient providers 11/23 - Tolerated first dose of lithium. Conservative dosing to start as DRAGAN inhibitor was started concomitantly 11/24 - [place] level due 11/28/2016. Tolerating well. Continue other home meds: escitalopram 10mg, aripiprazole 5mg bid, and Depakote which was decreased to 1000mg qhs. - Family meeting with and son today. 11/25 - Increase hydroxyzine to 50 mg as needed for anxiety, as patient reports little benefit with 25 mg. Encouraged him to process his anxiety, as he feels is being driven by his fears of discharge, and warned of risk of sedation with higher dose. 11/26 - Continue current medications. We'll move up lithium levels until tomorrow , as he is hoping to be discharged in time to attend his therapy appointment. Continue to monitor his fine tremor, which is not currently interfering with activities, and advised patient that lithium dose can be adjusted after we review the results of his trough level if needed. (2) Hypertension 11/22 - denies h/o HTN - start lisinopril 10mg po qam. reviewed common risks/benefits. can then f/u w/ PCP as outpatient. - consider interaction of antihypertensives re Li excretion 11/23 - Blood pressure improved today Discharge / Aftercare Planning Primary Care Physician: Name: Dr Sanchez Date of Appointment: Dec 15, 2016 Time of Appointment: 3:05pm Psychiatrist: Name: Dr Goodman Date of Appointment: Dec 01, 2016 Time of Appointment: 10;45am Therapist: Name: Dave Orosco Date of Appointment: Nov 27, 2016 Time of Appointment: 2:00pm Admitting Counselor: Name: None Visit Code E&M Code: 65791 Inventory Assets Strengths: help seeking. compliant with meds. has stable residence and outpatient providers Needs: medication management and activation Risk Factors Assessment Male: Yes : Yes /single/: No Access to guns: No Health problems: Yes Mental Health Diagnoses: Yes Substance use disorders: No Previous attempt: No Family history of suicide: No Previous psychiatric stay: Yes Hopelessness: Yes Smoker: No Protective Factors Assessment Jain beliefs: No : Yes Responsible for young children: No Employed: No Stable relationships: Yes Supportive family: Yes Data Vital Signs Last 24 Hrs: Date Time Temp Pulse Resp B/P (MAP) Pulse Ox O2 Delivery O2 Flow Rate FiO2 11/26/16 07:09 36.5 64 16 121/78 66 121/77 Meds Administered Last 24 Hrs: Meds Administered (Past 24Hrs) Medications (Trade) Dose Ordered Sig/Aryan Route Start Time Stop Time Status Last Admin Dose Admin Hydroxyzine HCl (Vistaril Tab) 50 mg Q4H PRN PO 11/25/16 12:45 12/21/16 12:44 11/25/16 14:29 50 MG
[2016-11-26 10:43] VITALS: BP 130/90; PULSE 160; PULSE 163
[2016-11-26] MEDS: DIVALPROEX SODIUM 500 MG DELAY RELEASE TAB PO SCH (21:22)
[2016-11-27 06:59] VITALS: BP_SYST 113; BP_SYST 128; BP_DIAS 73; BP_DIAS 80; PULSE 60; PULSE 68; TEMP 36.3
[2016-11-27] MEDS: LISINOPRIL 10 MG TAB PO SCH (08:41)
[2016-11-27] MEDS: ESCITALOPRAM OXALATE 10 MG TAB PO SCH (08:41)
[2016-11-27] MEDS: ARIPIprazole TAB 5 MG TAB PO SCH (08:41)
[2016-11-27] MEDS ORDERED: LSN10 PO (09:07)
--- NOTE | 2016-11-27 09:26 | Discharge Instructions ---
Discharge Information Report Includes Report will include the: Discharge Instructions & Summary Admission Admission Date / Time: Nov 21, 2016 at 15:51 Reason for Admission: Major Depression Disorder,Bipolar Discharge Discharge Diagnosis / Problem: Bipolar disorder type I, depressed. Hypertension. Condition at Discharge: Good Discharge Goals Goal(s): Improve function, Improve disease control, Learn about illness, Therapeutic intervention Activity Recommendations Activity Limitations: per Instructions/Follow-up section . Instructions / Follow-Up Instructions / Follow-Up . SPECIAL CARE INSTRUCTIONS: 1. Follow through with your scheduled aftercare appointments. If unable to keep an appointment, please call to reschedule. 2. Take your medication only as prescribed. Medication should not be changed or stopped without the approval of your doctor. In the event of worsening symptoms or concerns about side effects, contact your doctor immediately. 3. Utilize new healthy coping skills, anger management skills, and stress management skills learned during your hospitalization. Journal feelings and process them with a support person. Identify stressors or situations that may result in relapse, deterioration or inappropriate behaviors and develop a plan to deal with those issues. 4. If your coping skills are ineffective and you are in crisis, contact your outpatient providers for direction. If unable to reach your providers, please call the CAN HELP LINE AT or go to the closest Emergency Room. 5. Avoid alcohol and un-prescribed drugs. 6. You have been provided with the Mental Health Advance Directives Pamphlet for your review. AFTERCARE APPOINTMENTS: * Please call your insurance company prior to your scheduled appointment to confirm your aftercare providers are covered. Take your insurance information to your appointments. . Discharge / Aftercare Planning Primary Care Physician: Name: Dr Sanchez Date of Appointment: Dec 15, 2016 Time of Appointment: 3:05pm Psychiatrist: Name: Dr Goodman Date of Appointment: Dec 01, 2016 Time of Appointment: 10;45am Therapist: Name Of Therapist: Dave Orosco Date of Appointment: Nov 27, 2016 Time of Appointment: 2:00pm Underground Truck Operator: Name: None . Follow-Up Care Plan for Follow-Up Care: See above. Current Hospital Diet Patient's current hospital diet: Regular Diet Discharge Diet Recommended Diet: Regular Diet Procedures Procedures Performed: No Pending Studies Pending Studies at Discharge: No Medical Emergencies . Who to Call and When: Medical Emergencies: For questions or emergencies related to your hospital stay, please contact the Inpatient Behavioral Health Unit at [phone]. A senior clinician is on-call 24/11 for the Behavioral Health Unit for emergencies At any time you feel your situation is an emergency, you may also call 911 immediately. . Non-Emergent Contact Non-Emergency issues call your: Primary Care Provider, Psychiatrist, Therapist Past History Medical & Surgical History: (1) Hypertension Advance Directives Existing Advance Directive: No Do You Have an Existing Mental: No Existing Living Will: No Existing Power of Equipment Engineering Technician: No Advance Directives Info Given: To Pt/S.O. Advance Directives Reason: Declines as Mental Health Visit. Discharge Summary Admission HPI Per the Admitting provider: This is a cooperative 61-year-old gentleman who reports a history of bipolar diagnosis which was diagnosed in his early 50s. He perceives that, in the past , he has shown softer signs of hypomania but this was becoming more of a problem " where was getting almost out of control" and he was started on Depakote in 2010 which has helped to reduce significantly his experience of buzz. He describes his buzz as being excessively talkative, thought racing, mild grandiosity, mild delusional thinking, spending sprees and order thousand dollars, excessive energy that could last for weeks to months. He denies that he ever became overtly psychotic or had hallucinations with his buzz. Since he has been on the Depakote he describes his mood as more "flat." He believes that the last year has been largely mildly depressive with more acute low mood in the past 3 weeks without clear trigger. He describes sleeping excessively, perhaps 16 hours a day, very low energy, low interest, increasing guilt about his inability to do things, declined appetite, 9 pound weight loss in last 2 weeks, and some thoughts of life not being worth living however he denies that he is considered hurting himself because his family is protective. He denies a history of self-harm. He has been on benzodiazepines in the past and does perceive that at times he feels anxious however he does not identify with a baseline of excessive anxiety and worry. Denies history of discrete panic attacks. Since moving to this area last year he had been seeing Dr. Rendon and most recently seeing Dr. Uribe. He had been taking Wellbutrin at a low-dose but felt that it was not effective and this was discontinued and Lexapro started instead about [address] Uribe. So far he reports no benefit but tolerating okay. Has been on Abilify same dose for years. Since admission to the unit his blood pressure has been trending a little high. He denies a history of hypertension. Admission Exam Per the Admitting provider: Please see admission H&P. Consultations None. Hospital Course (1) Bipolar 1 disorder, depressed, severe 11/22 - pt admitted to locked unit w/ safety checks. - will be encourage to participating in unit programming as appropriate - encourage attn to ADL's - reduce depakote from 1500mg total daily to 1000mg qhs - level in 70's o admission. makes him feel flat but effective for buzz - start lithium carb 450mg po bid. if effective for mood stabilization, may consider as monotherapy in future - common risks associated with lithium discussed including thyroid dysfunction, weight gain, kidney disease, need for monitoring levels - will continue lexapro 10mg daily for now (started approx 2 weeks ago.) reviewed risks re mood cycling and buzz longer term - will give a little simethicone prn for nonacute abdominal cramping and monitor - care will be coordinated with outpatient providers 11/23 - Tolerated first dose of lithium. Conservative dosing to start as DRAGAN inhibitor was started concomitantly 11/24 - [place] level due 11/28/2016. Tolerating well. Continue other home meds: escitalopram 10mg, aripiprazole 5mg bid, and Depakote which was decreased to 1000mg qhs. - Family meeting with and son today. 11/25 - Increase hydroxyzine to 50 mg as needed for anxiety, as patient reports little benefit with 25 mg. Encouraged him to process his anxiety, as he feels is being driven by his fears of discharge, and warned of risk of sedation with higher dose. 11/26 - Continue current medications. We'll move up lithium levels until tomorrow , as he is hoping to be discharged in time to attend his therapy appointment. Continue to monitor his fine tremor, which is not currently interfering with activities, and advised patient that lithium dose can be adjusted after we review the results of his trough level if needed. (2) Hypertension 11/22 - denies h/o HTN - start lisinopril 10mg po qam. reviewed common risks/benefits. can then f/u w/ PCP as outpatient. - consider interaction of antihypertensives re Li excretion 11/23 - Blood pressure improved today 11/26 - Continue lisinopril, 30 day prescription sent in to pharmacy. F/u with PCP 12/15, and send records to coordinate care. Risk Factors Assessment Male: Yes : Yes /single/: No Higher / Fall in social status: No Access to guns: No Health problems: Yes Mental Health Diagnoses: Yes Substance use disorders: No Previous attempt: No Family history of suicide: No Previous psychiatric stay: Yes Hopelessness: Yes Smoker: No Protective Factors Assessment Tenriism beliefs: No : Yes Responsible for young children: No Employed: No Stable relationships: Yes Supportive family: Yes Good rapport with provider: Yes Absence of risk factors above: Yes (risk factors were mitigated by admission to the inpatient unit, adjusting medications to target bipolar depression, treating comorbid medical conditions, involving the patient in groups and therapy on the unit, working on healthy coping skills and a discharge safety plan, working on plans to increase his structure at home, a family meeting with his and son whom he lives with, coordinating care with his outpatient providers, and addressing potential medication side effects. The patient's mood and anxiety have improved here, he has been calm and cooperative with care , engaged in his treatment, and consistently denying suicidal thoughts. He has been able to perform his ADLs independently, is eating and sleeping well, and tolerating his medications without difficulty. He is requesting discharge, and as he is no longer at acute risk of harm to himself, can be managed as an outpatient at this time. He does not have significant risk factors for harm to others.) Day of Discharge Assessment Hospital course: On admission, the patient was continued on his home doses of escitalopram and aripiprazole. His Depakote dose was reduced as although he said it had been effective for preventing buzz, his mood felt more flat. He was started on lithium 450 mg twice a day, which was later consolidated to bedtime. His trough level on the day of discharge was 0.6. He was also started on lisinopril 10 mg daily for hypertension, with good response. He was active in unit groups and therapy, appropriate in his interactions with staff and peers, and consistently denied suicidal thoughts. He did have episodes of high anxiety, where he was very worried that after discharge he would decompensate and again feel unable to get out of bed or care for himself. He felt it was very helpful to be in the structured setting of the hospital, with a set daily schedule and expectations that he get up and participate. He was encouraged to work on the schedule for when he returned home to assist him in sticking to a daily routine. He had a family meeting with his and son on 11/24/2016. They discussed his and sons medical and mental health problems and need for significant assistance and support from the patient, who does many of the household tasks. They talked about ways that his son and could assist with household duties, and appeared to be supportive and have good communication. They also discussed the patient's past episodes of bipolar, and his extreme spending when manic, which at one point resulted in the family losing their house and filing for bankruptcy. His shared that he had been on lithium in the past, and at one point had side effects of tremor and slurred speech. This physician spoke with his at her request to review the decision to start him on lithium, currently being used as an augmenting agent with other mood stabilizers, and therefore at a lower dose which will hopefully allow avoidance of previously experienced side effects. He did utilize hydroxyzine at times for sleep and anxiety. The patient improved with respect to mood and anxiety throughout his stay, and ultimately requested discharge on 11/27/2016, with a plan to attend his scheduled therapy appointment that afternoon. Day of discharge assessment: The patient reports his mood is significantly improved from admission, describes it as "really good," and feels he is ready for discharge. He denies significant anxiety for the past day and a half. He continues to have some concern that he will relapse when he returns home, with difficulty getting out of bed and performing ADLs, but is able to review his safety plan in detail, as well as a plan to stick to a daily routine, which he has found helpful here. He is also planning to start journaling, so that he can track his symptoms and his daily activities, as he thinks this will help him to develop a routine that works well for him and helps to keep him stable. He has been performing all ADLs independently, is eating and sleeping well, and taking medications as prescribed. He continues to have a fine tremor at times, but it is not interfering with his ability to function. He denies any other side effects to medications, and feels that they are helping. He denies thoughts of harming himself or anyone else. Well nourished, well developed WM appearing stated age. Casually dressed and adequately groomed. Calm and cooperative. Seated in NAD, with fair eye contact and no abnormal movements. Speech is normal rate, volume, and tone. Mood is "really good," and affect is euthymic, appropriate, stable and congruent. Thoughts are linear, logical and goal directed. The patient denied suicidal and homicidal ideation and was able to safety plan. No paranoia, delusions, or hallucinations, and did not appear to be responding to internal stimuli. Cognition was grossly intact. Alert and oriented to person, place and time. Intelligence is consistent with level of education. Insight and and judgment are fair. Laboratory Test 11/21/16 14:10 11/21/16 14:30 11/22/16 07:02 11/22/16 07:05 Urine Color DK YELLOW Urine Appearance CLEAR Urine pH 6.0 Urine Specific [place] 1.034 Urine Protein TRACE Urine Glucose (UA) NEG Urine Ketones 1+ Urine Occult Blood NEG Urine Nitrite NEG Urine Bilirubin NEG Urine Urobilinogen NEG Urine Leukocyte Esterase NEG Urine WBC (Auto) 1-5 Urine RBC (Auto) 5-10 Urine Hyaline Casts (Auto) 1-5 Urine Epithelial Cells (Auto) 5-10 Urine Bacteria (Auto) NEG Urine Opiates Screen NEG Urine Methadone, Qualitative NEG Urine Barbiturates NEG Urine Phencyclidine (PCP) Level NEG Ur Amphetamine/Methamphetamine NEG Urine MDE-amphetamine (MDEA) negative Ur Methylenedioxyamphetamine (MDA) negative MDMA (Ecstasy) Screen POS Methylenedioxymethamphetamine (MDMA negative Urine Benzodiazepines Screen NEG Urine Cocaine Metabolite NEG Urine Marijuana (THC) NEG White Blood Count 7.50 Red Blood Count 5.35 Hemoglobin 16.2 Hematocrit 45.4 Mean Corpuscular Volume 84.9 Mean Corpuscular Hemoglobin 30.3 Mean Corpuscular Hemoglobin Concent 35.7 Platelet Count 189 Mean Platelet Volume 11.0 Neutrophils (%) (Auto) 55.8 Lymphocytes (%) (Auto) 32.0 Monocytes (%) (Auto) 10.5 Eosinophils (%) (Auto) 0.9 Basophils (%) (Auto) 0.5 Neutrophils # (Auto) 4.18 Lymphocytes # (Auto) 2.40 Monocytes # (Auto) 0.79 Eosinophils # (Auto) 0.07 Basophils # (Auto) 0.04 RDW Standard Deviation 40.9 RDW Coefficient of Variation 13.3 Immature Granulocyte % (Auto) 0.3 Immature Granulocyte # (Auto) 0.02 Nucleated RBC Absolute Count (auto) 0.07 Nucleated Red Blood Cells % 0.9 Sodium Level 145 Potassium Level 4.1 Chloride Level 112 Carbon Dioxide Level 26 Anion Gap 7.0 Blood Urea Nitrogen 18 Creatinine 1.20 Est Creatinine Clear Calc Drug Dose 83.7 Estimated GFR () 76.3 Estimated GFR (Non- 65.8 BUN/Creatinine Ratio 15.3 Random Glucose 104 110 Calcium Level 8.9 Total Bilirubin 0.7 Direct Bilirubin 0.2 Aspartate Amino Transferase (AST) 33 Alanine Aminotransferase (ALT) 92 Alkaline Phosphatase 54 Total Protein 6.9 Albumin 3.4 Thyroid Stimulating Hormone (TSH) 0.724 Ethyl Alcohol mg/dL < 3.0 Triglycerides Level 111 Cholesterol Level 192 HDL Cholesterol 32 LDL Cholesterol, Calculated 138 VLDL Cholesterol, Calculated 22 Cholesterol/HDL Ratio 6.0 Valproic Acid Level 75 Test 11/27/16 09:00 [place] Level Pending Total Time Total Time Spent (min): Greater than 30 minutes Total Time Included: examination of the patient, discharge planning, medication reconciliation Tobacco Cessation at Discharge Smoking Status: Never Smoker FDA approved Prescription: non-smoker
[2016-11-27] MEDS ORDERED: LTHSR450 PO (10:29)
[2016-11-27] MEDS ORDERED: LITHIUM CARBONATE 450 MG TABCR PO SCH (22:00)
== END 2016-11-27 11:46 | disposition home or self-care (01) | DRG 885 ==
LOC: C.EDB 13:41 → C.MHU 15:51
PROVIDERS: ADMIT Psychiatry & Neurology Child & Adolescent Psychiatry; ATTEND Student in an Organized Health Care Education/Training Program
DX: F33.2 Major depressive disorder, recurrent severe without psychotic features (principal); I10 Essential (primary) hypertension; Z72.89 Other problems related to lifestyle; Z79.899 Other long term (current) drug therapy; Z81.8 Family history of other mental and behavioral disorders; Z81.4 Family history of other substance abuse and dependence; Z81.1 Family history of alcohol abuse and dependence

== ENCOUNTER → 2017-06-11 | Day surgery (SDC) | payer OTHER ==
[~2017-06-11] VITALS: Ht 188 cm; Wt 113.0 kg
[~2017-06-11] MED LIST: ABL/5 PO; ABL5 PO; ASPEC81 PO; ATOR-24 PO; ATV/1 PO; BENZTROPINE MESYLATE PO; DIVA500T59 PO; ESCI10TA17 PO; FENTANYL CITRATE INJ 50 MCG/1 ML 2 ML VIAL ONE; HEPARIN SOD (PORCINE) 1000 UNIT/ML 10 ML VIAL ONE; HYDR-3126 PO; LOSA1TAB PO; LSN10 PO; LTHSR450 PO; MIDAZOLAM HCL 1 MG/ML 2ML VIAL ONE; NITROGLYCERIN/D5W 100MCG/ML 20ML SYR ONE; NiCARDipine HCL INJ 2.5 MG/ML 10 ML AMP ONE
[2017-06-11 07:15] VITALS: BP 141/84; PULSE 82; TEMP 36.8; O2SAT 99; Ht 188 cm; Wt 113.0 kg
--- NOTE | 2017-06-11 08:08 | History & Physical Bridge Note ---
H&P Re-Evaluation Bridge Note: I have examined the patient, reviewed the History & Physical and in the interval since the performance of the History & Physical I have noted the following changes of clinical significance: No changes noted
--- NOTE | 2017-06-11 08:08 | Pre Sedation Assessment ---
Pre Sedation Assessment General Date of Sedation: Jun 11, 2017. Vital Signs Past 12 Hours Date Time Temp Pulse Resp B/P (MAP) Pulse Ox O2 Delivery O2 Flow Rate FiO2 06/11/17 07:15 36.8 82 22 141/84 (103) 99 Room Air Review Cardiovascular: regular rate, rhythm, no edema, no gallop, no JVD, no murmur Lungs: lungs clear, normal breath sounds, no respiratory distress, no accessory muscle use Pre-Sedation Airway Assessment Smoking Status: Former Smoker Hx of Sleep Apnea: No Short Thick Neck: No Thyro-mental Distance: > 3 Finger Breadths Oral Cavity: Chipped Teeth Mallampati Classification: Class III ASA Classification: Class II NPO Status Date of Last Intake of Fluids: Jun 10, 2017 Time of Last Intake of Fluids: 2199 Date of Last Intake of Solids: Jun 10, 2017 Time of Last Intake of Solids: 2199 Procedure Planning Contraindications for Sedation: None Current Medications Reviewed: Yes Notes The planned sedation has been discussed with the patient. Informed Consent was obtained. I have identified the patient, determined the appropriateness of sedation and have assessed the patient immediately prior to the procedure. All medicine(s) and interventions are by my order.
--- NOTE | 2017-06-11 09:16 | Post Sedation Assessment ---
Post Sedation Assessment General Date of Sedation Jun 11, 2017. Vital Signs: Vital Signs Past 12 Hours Date Time Temp Pulse Resp B/P (MAP) Pulse Ox O2 Delivery O2 Flow Rate FiO2 06/11/17 09:05 71 16 119/73 (88) 95 Room Air 06/11/17 09:00 65 16 119/81 (94) 96 Room Air 06/11/17 07:15 36.8 82 22 141/84 (103) 99 Room Air Post Procedure Recovery Score Activity: (2) Moves 4 extremities * Respiration: (2) Deep breath/cough Circulation: (2) +/-20% PreAnes Value Consciousness: (2) Fully Awake Oxygen Saturation: (2) > 92% On Room Air Post Anesthesia Score: 10 Discharge Sedation Level of Care: Fast Track Phase II Post Sedation Plan On clinical assessment, the patient appears to have tolerated the sedation without complications. Patient is recovering as anticipated. Patient will continue to be monitored by nursing and may be discharged when sedation discharge criteria are met per below protocol. Upon Completions of procedure and additional 15 minutes continue every 5 minute vital signs and the P.A.R. score; then discharge to a Phase I or Fast Track to Phase II per the following guidelines: * Discharge Patient to appropriate Phase II area if PAR is 8 or greater or return to pre- procedure baseline. The post - procedure orders will be as directed. * If PAR score is less than 8 or not return to pre-procedure baseline then patient will follow Phase I monitoring till PAR is reached for Phase II. The Phase I may be done in procedure room or may call to secure a Phase I area. * If naloxone or flumazenil are used for reversal, hold in Phase I for an additional 60 -120 minutes before discharge to Phase II. Please call the Sedation Physician to re-evaluate and complete post-note for discharge to Phase II area. Do NOT discharge from procedure sedation or Phase 1 until post- sedation evaluation note is complete by procedure /sedation MD Sedation Discharge Instructions to be given to the patient at discharge to home.
--- NOTE | 2017-06-11 09:27 | Cardiac Catheterization ---
Procedure Note Procedure Date Jun 11, 2017. Pre-Procedure Diagnosis Positive Stress Test, Cardiothoracic Symptom AUC Score 7 Post-Procedure Diagnosis Mild CAD Procedure(s) Performed Coronary Angiography, Left Heart Cath Configuration Management Specialist Dr. Cortes Bag Machine Helper(s) Celso RTR Estimated Blood Loss 8cc Medication(s) Fentanyl, Heparin, Nicardipine, Nitroglycerin, Versed, Lidocaine 1% Summary of Findings Mild nonobstructive CAD Hemodynamics Rest Ao: 71//57 Final Ao: LV: 97/-5/8 Recommendations Medical therapy and/or Counseling Specimens None Radiation Exposure (mGy) 1365 Contrast (mls) 65 Fluids (cc crystalloids) 350cc Nss Anesthesia Moderate sedation. Start 0832. End . Monitor: Selvin Torres RN Procedural Complication(s) Hypotension related to injection of nitroglycerin/nicardipine at sheath insertion. Treated with IV NSS. Disposition [facility] Holding/Recovery ACC Data Cardiac Status Clinical evaluation leading to the procedure CAD Presntation: Positive Stress Test Anginal Classification: CCS II Heart Failure: No Cardiogenic Shock w/in 24Hrs: No Cardiac Arrest w/in 24Hrs: No Imaging studies past 6 months: Yes Stress Echocardiogram: Yes - Positive, Risk/Extent of Ischemia (Intermediate) Coronary Anatomy Dominant: Right Left Main (% Stenosis): Normal LAD (% Stenosis): Proximal (10%) D1 (% Stenosis): Ostial (20% ostial taper) Circumflex (% Stenosis): Mid (10%) OM1 (% Stenosis): Distal (20%) RCA (% Stenosis): Normal R PDA (% Stenosis): Normal R PL1 (% Stenosis): Normal R PL2 (% Stenosis): Normal AM (% Stenosis): Mid (10%) Ramus (% Stenosis): Mid (20%) Diagnostic Status: Elective Closure Device Percutaneous Entry Location: Radial Closure Device: Radial Band Recommendations: Medical therapy and/or Counseling Intraprocedure Events Significant Dissection: No Perforation: No
--- NOTE | 2017-06-11 09:31 | Discharge Instructions ---
Discharge Instructions Procedure Procedure Date: Jun 11, 2017. Reason for Visit: Abnormal Stress Echo Dr. Cortes To Do*. Discharge Discharge Date: Jun 11, 2017. Discharge Diagnosis: Mild non-obstructive coronary artery disease. Last Recorded Wt (Kilograms): 113 Anesthesia Post Anesthesia Instructions: If you have had General Anesthesia or IV Sedation: * Do not drive today. * Resume driving when surgeon permits. * Do not make important decisions or sign legal documents today. * Call surgeon for: 1. Temperature elevations greater than 101 degrees F. 2. Uncontrollable pain. 3. Excessive bleeding. 4. Persistent nausea and vomiting. 5. Medication intolerance (nausea, vomiting or rash). * For nausea and vomiting use only clear liquids such as: tea, soda, bouillon until nausea subsides, then gradually increase diet as tolerated. * If you have any concerns or questions, call your surgeon's office. If physician is unavailable and it is an emergency, call 911 or go to the nearest emergency room. Instructions Activity Recommendations: limitations as noted below Return to School/Work: with the following limitations Recommended Home Diet: low cholesterol Allergies: Coded Allergies: No Known Allergies (Unverified , 11/21/16) Provider Instructions ACTIVITY RECOMMENDATIONS: Excess manipulation of the wrist should be avoided for the next 24-48 hours. * No lifting over 2 pounds (approximately a 1/2 gallon of milk) with the utilized arm for 24 hours. * No strenuous activity such as bowling or tennis for 3 days. * Keep the site of the procedure covered with a bandage for 24 hours. *You may shower the day after the procedure. Do not take a tub bath or submerge the puncture site in water for the next 3 days. *Do not operate any motorized equipment for 3 days. SPECIAL CARE INSTRUCTIONS: The site may be slightly bruised and sore following your procedure. Should any of the following occur, contact the DrJasmina who performed your procedure. 1. Redness/inflammation, swelling, chills, or fever, or colored drainage at procedure site within 3-7 days after your procedure. 2. Coldness, discoloration, ongoing numbness, severe pain, or swelling. Expect mild tingling of hand and tenderness at the puncture site for up to three days. If this persists beyond three days, or other symptoms develop, notify the DrJasmina who performed your procedure. BLEEDING: If the procedure site on your wrist begins to bleed, do not panic 1. Place 1 or 2 fingers firmly just slightly above the insertion site to stop the bleeding. You may be able to feel your pulse as you hold pressure. 2. Lift your finger after 5 minutes to see if the bleeding has stopped. 3. Once the bleeding has stopped, gently wipe the wrist area clean with a bandage. * If the bleeding from your wrist does not stop after 10 minutes, or if there is a large amount of bleeding or spurting, call 911 ([address] drive yourself to the hospital). SKIN IRRITATION: * You may experience some redness and/or swelling in the area where radiation was administered. If any skin irritation occurs, please contact your family physician. FOLLOW UP VISIT: Keep any scheduled doctor appointments. Follow Up Follow-up with: Primary care physician as schedule. Jasbir Nguyen Recommendations: Call your doctor if: * Temperature above 101 degrees * Pain not relieved by pain medicine ordered * There is increased drainage or redness from any incision * You have any unanswered questions or concerns. Your Doctors Instructions noted above were prepared by provider Uche Cortes. Patient Signature Section: Patient Instructions Signature Page Tal Rivas Patient (or Guardian) Signature/Date: I have read and understand the instructions given to me by my caregivers. Caregiver/RN/Doctor Signature/Date: The above-named patient and/or guardian has received patient instructions on this date. + Original Patient Signature Page (only) stays with chart. Please make copy for patient.
[2017-06-11 11:00] VITALS: BP 142/82; PULSE 64; O2SAT 96
== END | disposition home or self-care (01) ==
LOC: C.CATH 06:59
PROVIDERS: ATTEND Internal Medicine Cardiovascular Disease
DX: I25.10 Atherosclerotic heart disease of native coronary artery without angina pectoris (principal); R94.31 Abnormal electrocardiogram [ECG] [EKG]; Z87.891 Personal history of nicotine dependence; I10 Essential (primary) hypertension; F31.70 Bipolar disorder, currently in remission, most recent episode unspecified; Z88.8 Allergy status to other drugs, medicaments and biological substances; Z82.49 Family history of ischemic heart disease and other diseases of the circulatory system; Z79.82 Long term (current) use of aspirin; Z79.899 Other long term (current) drug therapy